=== PATIENT | female | born 1930 | race African-American/Black ===

== ENCOUNTER → 2017-10-31 | Outpatient (CLI) | payer MEDICARE, OTHER | END | disposition home or self-care (01) | LOC: PCVCIMAG 13:31 | DX: I73.9 Peripheral vascular disease, unspecified (principal); L97.519 Non-pressure chronic ulcer of other part of right foot with unspecified severity; I70.8 Atherosclerosis of other arteries | CPT/HCPCS: 93925 ==

== ENCOUNTER → 2017-11-07 | Outpatient (CLI) | payer MEDICARE, OTHER | END | disposition home or self-care (01) | LOC: PCVCCLINIC 15:05 | DX: I73.9 Peripheral vascular disease, unspecified (principal); I10 Essential (primary) hypertension; L97.909 Non-pressure chronic ulcer of unspecified part of unspecified lower leg with unspecified severity; M79.606 Pain in leg, unspecified; C50.919 Malignant neoplasm of unspecified site of unspecified female breast; Z87.891 Personal history of nicotine dependence; Z79.899 Other long term (current) drug therapy | CPT/HCPCS: 36415; G0463 ==

== ENCOUNTER → 2017-11-10 | Outpatient (CLI) | payer MEDICARE, OTHER | END | disposition home or self-care (01) | LOC: PCVCCLINIC 11:13 | DX: I73.9 Peripheral vascular disease, unspecified (principal); I10 Essential (primary) hypertension | CPT/HCPCS: 36415 ==

== ENCOUNTER → 2017-11-14 | Outpatient (CLI) | payer MEDICARE, OTHER ==
[~2017-11-14] MED LIST: ACETAMINOPHEN 500 MG TABLET PO; ASPIRIN 325 MG TABLET; CLOPIDOGREL BISULFATE 75 MG TABLET; DIAZEPAM 10 MG TABLET.; EPINEPHrine 1 MG/ML VIAL; EPTIFIBATIDE BOLUS 2,000 MCG/ML 10ML VIAL. IV; HEPARIN SODIUM 5,000 UNIT/ML VIAL for PCVC.; IODIXANOL 270 MG/ML 100 ML VIAL.; IV NORMAL SALINE 500ML BAG 500 ML; LIDOCAINE 1% Multi-Dose 50 ML VIAL.; MIDAZOLAM HCL/PF 2 MG/2 ML VIAL.; ceFAZolin SODIUM 1 GM VIAL; fentaNYL PF VIAL 100 MCG/2 ML VIAL; hydrALAZINE 20 MG/ML VIAL.
== END | disposition home or self-care (01) ==
LOC: PCVCINTER 09:59
DX: I70.233 Atherosclerosis of native arteries of right leg with ulceration of ankle (principal); I70.1 Atherosclerosis of renal artery; L97.319 Non-pressure chronic ulcer of right ankle with unspecified severity; I70.0 Atherosclerosis of aorta; I25.10 Atherosclerotic heart disease of native coronary artery without angina pectoris; I10 Essential (primary) hypertension
CPT/HCPCS: 36252; 37231; 75716; 76937; 99152; 99153; C1725; C1751; C1757; C1760; C1769; C1876; C1885; C1887; C1894; J0171; J0360; J0690; J1327; J1644; J2250; J3010; J7040

== ENCOUNTER → 2017-12-28 | Outpatient (CLI) | payer MEDICARE, OTHER | END | disposition home or self-care (01) | LOC: PCVCIMAG 14:08 | DX: I65.23 Occlusion and stenosis of bilateral carotid arteries (principal); I73.9 Peripheral vascular disease, unspecified; I77.9 Disorder of arteries and arterioles, unspecified; I10 Essential (primary) hypertension; I70.8 Atherosclerosis of other arteries; Z87.891 Personal history of nicotine dependence; Z79.899 Other long term (current) drug therapy; Z79.82 Long term (current) use of aspirin | CPT/HCPCS: 93880; 93926; G0463 ==

== ENCOUNTER → 2018-05-03 | Outpatient (CLI) | payer MEDICARE, OTHER ==
--- NOTE | 2018-05-03 15:52 | PCVCIMAG ---
EXAM: RIGHT LOWER EXTREMITY ARTERIAL DUPLEX INDICATION: Peripheral Arterial Disease. Leg pain. FINDINGS: Right Leg: Common femoral profunda femoral arteries are patent. Increased systolic velocity distal superficial femoral artery of 351 cm/s consistent with patient's known 60-70% stenosis in the mid and distal vessel. Popliteal artery is patent. 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 Anterior tibial artery has good patency throughout including the proximal stents. IMPRESSION: Unchanged 60-70% stenosis mid/distal [place] right superficial femoral artery. Proximal right anterior tibial artery stents are maintaining good patency. 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 LOC:[id number]
== END | disposition home or self-care (01) ==
LOC: PCVCIMAG 16:07
PROVIDERS: ATTEND Nuclear Medicine Nuclear Cardiology
DX: I73.9 Peripheral vascular disease, unspecified (principal); L98.491 Non-pressure chronic ulcer of skin of other sites limited to breakdown of skin; I77.9 Disorder of arteries and arterioles, unspecified; I10 Essential (primary) hypertension; L97.909 Non-pressure chronic ulcer of unspecified part of unspecified lower leg with unspecified severity; C50.919 Malignant neoplasm of unspecified site of unspecified female breast; Z87.891 Personal history of nicotine dependence
CPT/HCPCS: 93926; G0463